=== PATIENT | male | born 1985 | race Caucasian/White ===

== ENCOUNTER 2017-12-15 21:47 | Emergency (ER) | payer BC ==
[2017-12-15] MEDS ORDERED: Acetaminophen/HYDROcodone 325-7.5 MG Tab PO ONE (22:06)
[2017-12-15] MEDS ORDERED: Ketorolac 60 MG/2 ML SDV IM ONE (22:06)
--- NOTE | 2017-12-15 22:10 | EDM.PDOC ---
ED HPI GENERAL MEDICAL PROBLEM - General Chief Complaint: Lower Extremity Injury/Pain Stated Complaint: PAIN LT FOOT Time Seen by Provider: 12/15/17 21:55 - History of Present Illness INITIAL COMMENTS - FREE TEXT/NARRATIVE: HISTORY AND PHYSICAL: History of present illness: The patient is a healthy 32-year-old male who presents after he felt a pop in his left ankle while he was walking off the basketball court. The patient says he was playing and had no issues during the game and they were between place and he was walking up the court when he suddenly felt a pop in his left ankle area and he went to the ground. He did not pass out or black out and initially did not have significant pain but he was not able to put weight on it or walk properly. He has no proximal knee or hip pain and he doesn't have any headache neck pain or back pain and as a result of all in. He has no distal foot or toe pain. He has no numbness or tingling in the foot. Patient did not take anything for pain prior to coming here. He has no other systemic complaints and is otherwise been doing well prior to these events. Review of systems: As per history of present illness and below otherwise all systems reviewed and negative. Past medical history: As per history of present illness and as reviewed below otherwise noncontributory. Surgical history: As per history of present illness and as reviewed below otherwise noncontributory. Social history: No reported history of drug or alcohol abuse. Family history: As per history of present illness and as reviewed below otherwise noncontributory. Physical exam: Gen.: Well-developed well-nourished man who is nontoxic and vital signs have been reviewed by me. HEENT: Atraumatic, normocephalic, negative for conjunctival pallor or scleral icterus, mucous membranes moist, throat clear, neck supple, nontender, trachea midline. Lungs: Clear to auscultation, breath sounds equal bilaterally, chest nontender. Heart: S1S2, regular rate and rhythm no overt murmurs Abdomen: Soft, nondistended, nontender. NABS Pelvis: Stable nontender. No lateral hip tenderness on the left Genitourinary: Deferred. Rectal: Deferred. Extremities: Atraumatic without any palpable bony deformities throughout all extremities and full range of motion. There is no gross calf swelling on the left and on palpation the Achilles tendon is not present but there is no gross tenderness. There is a slight amount of dependent ecchymosis at the posterior heel area but there is no bony deformity or tenderness of the heel or the distal foot and toes. Feet tib-fib knee and femur are intact and nontender. The legs are, negative for cords or calf pain. Neurovascular unremarkable. When I have the patient relax and I squeeze calf there is no movement of the foot. Patient is able to slightly dorsi and plantar flex at the foot but without much strength. Pulses are strong and there is no specific calcaneal or talus tenderness Neuro: Awake, alert, oriented. Cranial nerves II through XII unremarkable. Cerebellum unremarkable. Motor and sensory unremarkable throughout. Exam nonfocal. Diagnostics: X-ray left ankle Therapeutics: [place] Toradol ortho boot and crutches 2211: Case was discussed with Dr. Be Johnson the orthopedic surgeon at [facility]; he says that the patient does not need to come there emergently nor does he need to be seen emergently and that the repair of the tendon is usually done in a delayed fashion once swelling has improved. He recommends immobilization and crutches and follow-up next week in our clinic when our hearing aid specialist as available. I will discussed this conversation with the patient and family at bedside. Impression: Left Achilles pain/probable Left Achilles tendon rupture, rule out partial versus complete Definitive disposition and diagnosis as appropriate pending reevaluation and review of above. posterior left ankle Pain Score (Numeric/FACES): 8 - Related Data Allergies Allergy/AdvReac Type Severity Reaction Status Date / Time No Known Allergies Allergy Verified 12/15/17 22:01 Home Meds: Home Meds . [No Known Home Meds] 12/15/17 [History] Review of Systems - Review of Systems Review Of Systems: ROS reveals no pertinent complaints other than HPI. ED EXAM, GENERAL - Physical Exam Exam: See Below (See dictation) Course - Vital Signs Last Recorded V/S: Last Vital Signs Temp 36.8 C 12/15/17 21:55 Pulse 98 12/15/17 21:55 Resp 17 12/15/17 21:55 BP 110/69 12/15/17 21:55 Pulse Ox 94 L 12/15/17 21:55 - Orders/Labs/Meds Orders: Active Orders 24 hr Category Date Time Status Ankle Min 3V Lt [CR] Stat Exams 12/15/17 22:06 Taken DME for Discharge [COMM] Stat Oth 12/15/17 22:31 Ordered Meds: Medications Discontinued Medications Generic Name Dose Route Start Last Admin Trade Name Annette PRN Reason Stop Dose Admin Hydrocodone Bitart/Acetaminophen 1 tab 12/15/17 22:06 12/15/17 22:12 [place] 325-7.5 Mg PO 12/15/17 22:07 1 tab ONETIME ONE Administration Ketorolac Tromethamine 60 mg 12/15/17 22:06 12/15/17 22:12 Toradol IM 12/15/17 22:07 60 mg ONETIME ONE Administration Departure - Departure Time of Disposition: 22:39 Disposition: Home, Self-Care 01 Condition: Good Clinical Impression: Achilles tendon injury Qualifiers: Encounter type: initial encounter Laterality: left Qualified Code(s): S86.002A - Unspecified injury of left Achilles tendon, initial encounter - Discharge Information Referrals: PCP,None [Primary Care Provider] - Forms: ED Department Discharge Additional Instructions: The following information is given to patients seen in the emergency department who are being discharged to home. This information is to outline your options for follow-up care. We provide all patients seen in our emergency department with a follow-up referral. The need for follow-up, as well as the timing and circumstances, are variable depending upon the specifics of your emergency department visit. If you don't have a primary care physician on staff, we will provide you with a referral. We always advise you to contact your personal physician following an emergency department visit to inform them of the circumstance of the visit and for follow-up with them and/or the need for any referrals to a consulting specialist. The emergency department will also refer you to a specialist when appropriate. This referral assures that you have the opportunity for followup care with a specialist. All of these measure are taken in an effort to provide you with optimal care, which includes your followup. Under all circumstances we always encourage you to contact your private physician who remains a resource for coordinating your care. When calling for followup care, please make the office aware that this follow-up is from your recent emergency room visit. If for any reason you are refused follow-up, please contact the [facility] emergency department at and ask to speak to the emergency department charge nurse. GARIMA [facility]--Orthopedic clinic Professional Building [address] [place] [address] [phone] Please wear ortho blood at all times and loosen and remove only at sleep times. Use crutches and do not weight-bear until you're followed up in the clinic. Ice and elevate the area as much as possible and use pain medications as prescribed along with [id number] ibuprofen/Motrin. Please call our orthopedics clinic tomorrow for an expedited follow-up with our specialist on Tuesday or Tuesday. Return to ER as needed and as discussed. - My Orders Last 24 Hours: My Active Orders 12/15/17 22:06 Ankle Min 3V Lt [CR] Stat 12/15/17 22:31 DME for Discharge [COMM] Stat - Assessment/Plan Last 24 Hours: My Active Orders 12/15/17 22:06 Ankle Min 3V Lt [CR] Stat 12/15/17 22:31 DME for Discharge [COMM] Stat
--- NOTE | 2017-12-16 15:44 | CR ---
EXAM DATE: 12/15/17 PATIENT'S AGE: 32 Patient: CIERA CONROY Facility: [place], [place] Site . Site : 1985 Study: XRay Extremity Left ankle [id number]/[id number] 10:26:41 PM Ordering Physician: Rick Temple Final Report: INDICATION: posterior ankle pain TECHNIQUE: Three views of the left ankle COMPARISON: None FINDINGS: Bones: No fractures or bone lesions. Joint spaces: Unremarkable. Soft tissues: Thickening of the distal Achilles tendon. IMPRESSION: 1. No acute bony abnormality. 2. Thickening of the distal Achilles tendon. Please correlate for tendinopathy. Dictated by John Shoemaker MD @ 12/15/2017 10:32:08 PM Dictated by: John Shoemaker MD @ 12/15/2017 22:32:26 (Electronic Signature) Report Signed by Proxy. [email or web address]
== END 2017-12-15 22:55 | disposition home or self-care (01) ==
LOC: MW.ED 21:47
DX: S86.002A Unspecified injury of left Achilles tendon, initial encounter (principal); X50.9XXA Other and unspecified overexertion or strenuous movements or postures, initial encounter; Y93.67 Activity, basketball; Y92.310 Basketball court as the place of occurrence of the external cause
CPT/HCPCS: 73610; 96372; 99283; A9270; J1885; 99284

== ENCOUNTER 2017-12-21 14:28 | Day surgery (SDC) | payer BC ==
[~2017-12-21 14:28] MED LIST: Acetaminophen/HYDROcodone 325-5 MG Tab PO PRN; Albuterol/Ipratropium 3.0-0.5 MG/3 ML Neb Soln NEB ONE; Ketorolac 10 MG Tab PO PRN; Lactated Ringers 1,000 ML IV SCH; ceFAZolin 1 GM in Premix Bag 1 BAG IV SCH
--- NOTE | 2017-12-21 14:52 | PCM.PREANE ---
Preanesthetic Assessment - Anesthesia/Transfusion/Family Hx Anesthesia History: Prior Anesthesia Without Reaction Transfusion History: No Prior Transfusion(s) - Review of Systems General: No Symptoms Pulmonary: No Symptoms Cardiovascular: No Symptoms Gastrointestinal: No Symptoms Neurological: No Symptoms Other: Reports: None - Physical Assessment Height: 5 ft 8 in Weight: 72.575 kg ASA Class: 2 Mental Status: Alert & Oriented x3 Airway Class: Mallampati = 2 Dentition: Reports: Normal Dentition Thyro-Mental Finger Breadths: 3 Mouth Opening Finger Breadths: 3 ROM/Head Extension: Full Lungs: Clear to Auscultation, Normal Respiratory Effort Cardiovascular: Regular Rate, Regular Rhythm - Allergies Allergies/Adverse Reactions: Allergies Allergy/AdvReac Type Severity Reaction Status Date / Time No Known Allergies Allergy Verified 12/15/17 22:01 - Acknowledgements Anesthesia Type Planned: General Anesthesia (ett) Pt an Appropriate Candidate for the Planned Anesthesia: Yes Alternatives and Risks of Anesthesia Discussed w Pt/Guardian: Yes Pt/Guardian Understands and Agrees with Anesthesia Plan: Yes PreAnesthesia Questionnaire - Past Health History Medical/Surgical History: Denies Medical/Surgical History HEENT History: Reports: None Cardiovascular History: Reports: None Respiratory History: Reports: None Gastrointestinal History: Reports: None Genitourinary History: Reports: None Musculoskeletal History: Reports: Fracture Other Musculoskeletal History: hx fx ankle Neurological History: Reports: None Psychiatric History: Reports: None Endocrine/Metabolic History: Reports: None Hematologic History: Reports: None Immunologic History: Reports: None Oncologic (Cancer) History: Reports: None Dermatologic History: Reports: None - Past Surgical History Head Surgeries/Procedures: Reports: None HEENT Surgical History: Reports: Oral Surgery Other HEENT Surgeries/Procedures: wisdom teeth extraction - SUBSTANCE USE Smoking Status *Q: Never Smoker Second Hand Smoke Exposure: No Recreational Drug Use History: No - HOME MEDS Home Medications: Home Meds Hydrocodone/Acetaminophen [Hydrocodon-Acetaminophen 5-325] 1 - 2 tab PO ASDIRECTED PRN 12/19/17 [History] - CURRENT (IN HOUSE) MEDS Current Meds: Current Medications Hydrocodone Bitart/Acetaminophen ([place] 325-5 Mg) 1 - 2 tab PO Q4H PRN PRN Reason: Pain Cefazolin Sodium/Dextrose 1 gm (/ Premix) 50 mls @ 100 mls/hr IV ONCALL GISELA Lactated Ringer's (Ringers, Lactated) 1,000 mls @ 100 mls/hr IV ASDIRECTED [facility] Ketorolac Tromethamine (Toradol) 10 mg PO Q6H PRN PRN Reason: Pain Stop: 12/26/17 08:01
[2017-12-21] MEDS ORDERED: Midazolam 1 MG/ML 2 ML SDV ONE (14:59)
[2017-12-21] MEDS ORDERED: Propofol 200 MG/20 ML SDV ONE (14:59)
[2017-12-21] MEDS ORDERED: fentaNYL 100 MCG/2 ML SDV ONE (14:59)
[2017-12-21] MEDS ORDERED: Lidocaine 2% 5 ML SDV ONE (14:59)
[2017-12-21] MEDS ORDERED: cefOXitin 1 GM Vial ONE (15:00)
[2017-12-21] MEDS ORDERED: fentaNYL 250 MCG/5 ML SDV ONE (15:00)
[2017-12-21] MEDS ORDERED: cefOXitin 0 ML ONE (15:01)
--- NOTE | 2017-12-21 16:10 | PCM.OPNOTE ---
- General Post-Op/Procedure Note Date of Surgery/Procedure: 12/21/17 Operative Procedure(s): L Achilles' tendon repair Post-Op Diagnosis: L Achilles' tendon rupture Anesthesia Technique: General ET Tube Primary Surgeon: Stephanie Arita Heater Installer: Ivan Fletcher in mLs: 10 Condition: Good Free Text/Narrative:: tt-41 min #[id number]
[2017-12-21] MEDS ORDERED: Bupivacaine 0.5% 10 ML SDV ONE (17:15)
[2017-12-21] MEDS ORDERED: Rocuronium 10 MG/ML 10 ML Syringe ONE (17:28)
[2017-12-21] MEDS ORDERED: ePHEDrine 50 MG/ML SDV ONE (17:53)
[2017-12-21] MEDS ORDERED: Sodium Chloride 0.9% 20 ML ONE (17:53)
[2017-12-21] MEDS ORDERED: Glycopyrrolate 0.2 MG/ML SDV ONE (18:16)
[2017-12-21] MEDS ORDERED: Neostigmine Methylsulfate 1 MG/ML 5 ML Syringe ONE (18:16)
[2017-12-21] MEDS: fentaNYL 100 MCG/2 ML SDV IVPUSH PRN ×2 (19:27→19:34)
--- NOTE | 2017-12-21 20:36 | PCM.POSTAN ---
POST ANESTHESIA ASSESSMENT - MENTAL STATUS Mental Status: Alert, Oriented - RESPIRATORY Respiratory Status: Respiratory Rate WNL, Airway Patent, O2 Saturation Stable - CARDIOVASCULAR CV Status: Pulse Rate WNL, Blood Pressure Stable - GASTROINTESTINAL GI Status: No Symptoms - POST OP HYDRATION Hydration Status: Adequate & Stable
--- NOTE | 2017-12-21 20:37 | PCM48HPAN ---
Post Anesthesia Note - EVALUATION WITHIN 48HRS OF ANESTHETIC Vital Signs in Normal Range: Yes Patient Participated in Evaluation: Yes Respiratory Function Stable: Yes Airway Patent: Yes Cardiovascular Function Stable: Yes Hydration Status Stable: Yes Pain Control Satisfactory: Yes Nausea and Vomiting Control Satisfactory: Yes Pulse Rate: 54 SaO2: 95 (RA) Resp Rate: 10
--- NOTE | 2017-12-22 00:18 | OR ---
SURGEON: Stephanie Arita MD DATE OF PROCEDURE: 12/21/2017 PREOPERATIVE DIAGNOSIS: Left Achilles tendon rupture. POSTOPERATIVE DIAGNOSIS: Left Achilles tendon rupture. PROCEDURE: Left Achilles tendon repair, open. FIREARMS MODEL MAKER: Ivan Manjarrez MD, PGY 3 and Kya Shrestha PA-C. ANESTHESIA: General. ESTIMATED BLOOD LOSS: 10 mL. TOURNIQUET TIME: 41 minutes. COMPLICATIONS: None. DVT PROPHYLAXIS: PAS boot to the nonoperative leg. IMPLANTS USED: None. BRIEF HISTORY: Carmine is a 32-year-old male who injured his left ankle while playing basketball. An MRI did confirm a complete rupture of the left Achilles tendon. At that time, I discussed surgical treatment options with the patient. The risks and goals were discussed, and he agreed to proceed. DESCRIPTION OF PROCEDURE: The patient was properly identified and brought to the operating room. General anesthesia was administered on the operating room cart. After adequate anesthesia was obtained, the patient was placed in a prone position. Chest rolls were used. His abdominal contents were allowed to hang free. His shoulders were supported. A well-padded tourniquet was applied to the left lower extremity. The left lower extremity was then prepped in standard fashion using ChloraPrep solution. It was then sterilely draped. A time-out was performed to ensure correct site and procedure. Preoperative antibiotics were given. The surgical site had been marked preoperatively. An Esmarch was used to exsanguinate the left lower extremity, and the tourniquet was inflated to 250 mmHg. An incision was made over the posterior aspect of the low leg in a slightly medial position. This was centered over the site of the palpable defect. The thick skin bridges were made. The paratenon was then encountered. This was incised with a deep knife and preserved. The Achilles tendon rupture was visualized. It was quite hemorrhagic. The wound was copiously irrigated with saline solution. The frayed ends were removed. The ends were able to be easily reapproximated. Allis clamps were placed onto both the distal and proximal ends, and #2 FiberWire was passed in a modified Krackow-type stitch. Once the distal and proximal ends were sutured with 4 ties from each section, they were reapproximated and tied without difficulty. I did check the tension from the contralateral leg. He was also taken through a range of motion. I was able to get him to approximately 5 degrees of ankle dorsiflexion with minimal tension on the repair. The repair was then oversewn with a continuous running 0 Vicryl, which provided further support to the repair. The wound was again copiously irrigated with saline solution. The paratenon was sewn over the tendon using 2- 0 Monocryl. We were able to get good coverage of the tendon. The tourniquet was then deflated. The subcutaneous tissues were closed with 2-0 Monocryl, and the skin was closed with britt. 0.5% Marcaine was injected along the wound edges. Xeroform gauze was placed over the wound, and a bulky dressing was applied. He was placed in a well-padded posterior splint with medial and lateral stabilizing slab, keeping the foot in a slightly plantar flexed position. He was awakened from his anesthetic and transferred back to the operating room cart. He was brought to recovery room in stable condition. All needle and sponge counts were correct. ANABELLA / EMILE /[id number]
== END 2017-12-21 21:05 | disposition home or self-care (01) ==
LOC: MW.SDS 14:28
PROVIDERS: ATTEND Orthopaedic Surgery
DX: S86.002A Unspecified injury of left Achilles tendon, initial encounter (principal); Z79.899 Other long term (current) drug therapy; Y93.67 Activity, basketball
CPT/HCPCS: 27650; A9270; J0690; J2250; J3010; J7120; 01472; J0694; J2704

== ENCOUNTER 2018-07-06 05:51 | Emergency (ER) | payer BC ==
--- NOTE | 2018-07-06 05:55 | EDM.PDOC ---
ED HPI GENERAL MEDICAL PROBLEM - General Stated Complaint: CUT ON LEFT FINGER Time Seen by Provider: 07/06/18 05:55 Source of Information: Reports: Patient History Limitations: Reports: No Limitations - History of Present Illness INITIAL COMMENTS - FREE TEXT/NARRATIVE: HISTORY AND PHYSICAL: History of present illness: 33-year-old male presenting emergency department with chief complaint of left hand trauma and laceration. Patient states that he was lifting weights this morning and while changing the cable weights the pin came out and the weights fell landing on the tips of his left third and fourth digit. He had immediate pain and there was significant bleeding. Denies any other trauma or loss of consciousness. Patient states that he is up-to-date on tetanus. On exam there is bruising to the left fourth nail. There is a 4 cm x 0.1 curvilinear laceration starting just proximal to the left middle nail and curving anteriorly to the palmar surface of the left distal middle finger. Left hand x-ray revealed a mildly displaced possibly mildly comminuted spiral fracture involving the distal phalanx of the left middle finger with moderate overlying soft tissue swelling and soft tissue irregularity consistent with overlying moderately prominent soft tissue laceration which partially involves the nail bed. There is subtle linear lucency through the distal tuft of the left index finger on only the frontal image and radiology is unable to exclude a subtle fracture. Did call Dr. Chamberlain, Plastic/hand surgeon, who instructed us to thoroughly clean wound and have the patient see her early this morning in her clinic. They will call him for details. This was communicated to the patient. Review of systems: As per history of present illness and below otherwise all systems reviewed and negative. Past medical history: As per history of present illness and as reviewed below otherwise noncontributory. Surgical history: As per history of present illness and as reviewed below otherwise noncontributory. Social history: No reported history of drug or alcohol abuse. Family history: As per history of present illness and as reviewed below otherwise noncontributory. Physical exam: HEENT: Atraumatic, normocephalic, pupils reactive, negative for conjunctival pallor or scleral icterus, mucous membranes moist, throat clear, neck supple, nontender, trachea midline. Lungs: Clear to auscultation, breath sounds equal bilaterally, chest nontender. Heart: S1S2, regular, negative for clicks, rubs, or JVD. Abdomen: Soft, nondistended, nontender. Negative for masses or hepatosplenomegaly. Negative for costovertebral tenderness. Pelvis: Stable nontender. Genitourinary: Deferred. Rectal: Deferred. Extremities: Atraumatic, negative for cords or calf pain. Neurovascular unremarkable. Neuro: Awake, alert, oriented. Cranial nerves II through XII unremarkable. Cerebellum unremarkable. Motor and sensory unremarkable throughout. Exam nonfocal. Diagnostics: Three-view left hand x-ray Therapeutics: 1% lidocaine digital block 5 mL 0.25% Bupivicaine digital block 5 ml Impression: Open fracture Spiral comminuted open fracture of the distal left middle phalanx Possible subtle fracture of distal left index finger Plan: Please see above H&P. Patient will follow up with Dr. Chamberlain as per above. Definitive disposition and diagnosis as appropriate pending reevaluation and review of above. - Related Data Allergies Allergy/AdvReac Type Severity Reaction Status Date / Time No Known Allergies Allergy Verified 07/06/18 05:58 Home Meds: Home Meds . [No Known Home Meds] 07/06/18 [History] Past Medical History - Past Health History Medical/Surgical History: Denies Medical/Surgical History HEENT History: Reports: None Cardiovascular History: Reports: None Respiratory History: Reports: None Gastrointestinal History: Reports: None Genitourinary History: Reports: None Musculoskeletal History: Reports: Fracture Other Musculoskeletal History: hx fx ankle Neurological History: Reports: None Psychiatric History: Reports: None Endocrine/Metabolic History: Reports: None Hematologic History: Reports: None Immunologic History: Reports: None Oncologic (Cancer) History: Reports: None Dermatologic History: Reports: None - Past Surgical History Head Surgeries/Procedures: Reports: None HEENT Surgical History: Reports: Oral Surgery Other HEENT Surgeries/Procedures: wisdom teeth extraction Social & Family History - Family History Family Medical History: Noncontributory - Caffeine Use Caffeine Use: Reports: Coffee ED ROS GENERAL - Review of Systems Review Of Systems: ROS reveals no pertinent complaints other than HPI. ED EXAM, GENERAL - Physical Exam Exam: See Below Course - Vital Signs Last Recorded V/S: Last Vital Signs Temp 97.4 F 07/06/18 05:59 Pulse 80 07/06/18 05:59 Resp 18 07/06/18 05:59 BP 118/64 07/06/18 05:59 Pulse Ox 98 07/06/18 05:59 - Orders/Labs/Meds Orders: Active Orders 24 hr Category Date Time Status Hand Comp Min 3V Lt [CR] Stat Exams 07/06/18 05:58 Ordered Meds: Medications Discontinued Medications Generic Name Dose Route Start Last Admin Trade Name Annette PRN Reason Stop Dose Admin Bupivacaine HCl 10 ml 07/06/18 06:38 Sensorcaine-Mpf 0.25% INJECT 07/06/18 06:39 ONETIME ONE Lidocaine HCl 10 ml 07/06/18 06:01 07/06/18 06:11 Xylocaine-Mpf 1% INJECT 07/06/18 06:02 10 ml ONETIME ONE Administration Departure - Departure Time of Disposition: 06:45 Disposition: Home, Self-Care 01 Condition: Good Clinical Impression: Open fracture of phalanx of finger of left hand Qualifiers: Encounter type: initial encounter Finger: middle finger Phalanx: distal Fracture alignment: displaced Qualified Code(s): S62.633B - Displaced fracture of distal phalanx of left middle finger, initial encounter for open fracture - Discharge Information Referrals: PCP,None [Primary Care Provider] - Additional Instructions: My general discharge The following information is given to patients seen in the emergency department who are being discharged to home. This information is to outline your options for follow-up care. We provide all patients seen in our emergency department with a follow-up referral. The need for follow-up, as well as the timing and circumstances, are variable depending upon the specifics of your emergency department visit. If you don't have a primary care physician on staff, we will provide you with a referral. We always advise you to contact your personal physician following an emergency department visit to inform them of the circumstance of the visit and for follow-up with them and/or the need for any referrals to a consulting specialist. The emergency department will also refer you to a specialist when appropriate. This referral assures that you have the opportunity for follow-up care with a specialist. All of these measure are taken in an effort to provide you with optimal care, which includes your follow-up. Under all circumstances we always encourage you to contact your private physician who remains a resource for coordinating your care. When calling for follow-up care, please make the office aware that this follow-up is from your recent emergency room visit. If for any reason you are refused follow-up, please contact the [facility] Emergency Department at and asked to speak to the emergency department charge nurse. [facility] - Plastic Surgery Professional Building [address] [place] [address], [address] [place] [address] Please follow-up with Dr. Chamberlain, plastic/hand surgeon, as we discussed. Her office will call you early this morning so that you can be seen this a.m. Return emergency department if any new or worsening symptoms. - My Orders Last 24 Hours: My Active Orders 07/06/18 05:58 Hand Comp Min 3V Lt [CR] Stat - Assessment/Plan Last 24 Hours: My Active Orders 07/06/18 05:58 Hand Comp Min 3V Lt [CR] Stat
[2018-07-06] MEDS ORDERED: Bupivacaine 0.25% 10 ML SDV INJECT ONE (06:38)
--- NOTE | 2018-07-06 11:06 | CR ---
EXAM DATE: 07/06/18 PATIENT'S AGE: 33 Patient: CIERA CONROY Facility: [place], [place] Site . Site : 1985 Study: XRay Extremity Left [id number]/30/2018 6:18:42 AM Ordering Physician: Dylan Schwab Final Report: INDICATION: Trauma. TECHNIQUE: Three views left hand. FINDINGS: Mildly displaced possibly mildly comminuted spiral fracture involving the distal phalanx of the left middle finger with moderate overlying soft tissue swelling and soft tissue irregularity consistent with overlying moderately prominent soft tissue laceration which partially involves the nailbed. Subtle linear lucency through the distal tuft of the left index finger on only the frontal image and I cannot exclude a subtle fracture in this region. Clinical correlation for pain in this location is recommended. No other fracture or dislocation in left hand. Remainder negative. Dictated by Jaiden Hernandez MD @ Jul 06 2018 6:25AM (Electronic Signature) Report Signed by Proxy. RAFA
== END 2018-07-06 07:00 | disposition home or self-care (01) ==
LOC: MW.ED 05:51
DX: S62.633B Displaced fracture of distal phalanx of left middle finger, initial encounter for open fracture (principal); X50.0XXA Overexertion from strenuous movement or load, initial encounter
CPT/HCPCS: 64450; 73130; 99282; J3490; 99283

== ENCOUNTER 2018-12-03 20:11 | Emergency (ER) | payer BC ==
[2018-12-03] MEDS ORDERED: Diphtheria,Pertussis(Acell),Tetanus Vaccine 0.5 ML Syringe IM ONE (20:23)
[2018-12-03] MEDS ORDERED: Bacitracin Oint 1 GM U/D Packet TOP ONE (20:29)
[2018-12-03] MEDS ORDERED: Bacitracin Oint 1 GM U/D Packet ONE (20:30)
--- NOTE | 2018-12-03 20:35 | EDM.PDOC ---
ED HPI GENERAL MEDICAL PROBLEM - General Chief Complaint: Laceration Stated Complaint: PT HURT LIP Time Seen by Provider: 12/03/18 20:35 - History of Present Illness INITIAL COMMENTS - FREE TEXT/NARRATIVE: HISTORY AND PHYSICAL: History of present illness: Patient 33-year-old white male presents with concern of right facial laceration occurred when he was hit with a hockey stick role-played tonight he denies loss consciousness denies other trauma or concern he denies up-to-date tetanus Review of systems: As per history of present illness and below otherwise all systems reviewed and negative. Past medical history: As per history of present illness and as reviewed below otherwise noncontributory. Surgical history: As per history of present illness and as reviewed below otherwise noncontributory. Social history: No reported history of drug or alcohol abuse. Family history: As per history of present illness and as reviewed below otherwise noncontributory. Physical exam: HEENT: Patient has approximately 2 cm moderate depth laceration to his right face is no bony step-off no depression neurovascular exam is unremarkable, normocephalic, pupils reactive, negative for conjunctival pallor or scleral icterus, mucous membranes moist, throat clear, neck supple, nontender, trachea midline. Lungs: Clear to auscultation, breath sounds equal bilaterally, chest nontender. Heart: S1S2, regular, negative for clicks, rubs, or JVD. Abdomen: Soft, nondistended, nontender. Negative for masses or hepatosplenomegaly. Negative for costovertebral tenderness. Pelvis: Stable nontender. Genitourinary: Deferred. Rectal: Deferred. Extremities: Atraumatic, negative for cords or calf pain. Neurovascular unremarkable. Neuro: Awake, alert, oriented. Cranial nerves II through XII unremarkable. Cerebellum unremarkable. Motor and sensory unremarkable throughout. Exam nonfocal. Diagnostics: None Therapeutics: Patient was anesthetized 1% lidocaine without epinephrine irrigated copious amounts 0.9 normal saline prepped and draped in a sterile manner and closed with 5-0 absorbable suture bacitracin was applied tetanus was updated Impression: #1 minor head injury with right facial laceration Definitive disposition and diagnosis as appropriate pending reevaluation and review of above. Right Face/Facial Pain Score (Numeric/FACES): 5 - Related Data Allergies Allergy/AdvReac Type Severity Reaction Status Date / Time No Known Allergies Allergy Verified 12/03/18 20:27 Home Meds: Home Meds . [No Known Home Meds] 07/06/18 [History] Past Medical History - Past Health History Medical/Surgical History: Denies Medical/Surgical History HEENT History: Reports: None Cardiovascular History: Reports: None Respiratory History: Reports: None Gastrointestinal History: Reports: None Genitourinary History: Reports: None Musculoskeletal History: Reports: Fracture Other Musculoskeletal History: hx fx ankle Neurological History: Reports: None Psychiatric History: Reports: None Endocrine/Metabolic History: Reports: None Hematologic History: Reports: None Immunologic History: Reports: None Oncologic (Cancer) History: Reports: None Dermatologic History: Reports: None - Past Surgical History Head Surgeries/Procedures: Reports: None HEENT Surgical History: Reports: Oral Surgery Other HEENT Surgeries/Procedures: wisdom teeth extraction Social & Family History - Family History Family Medical History: Noncontributory - Caffeine Use Caffeine Use: Reports: Coffee ED ROS GENERAL - Review of Systems Review Of Systems: ROS reveals no pertinent complaints other than HPI. ED EXAM, SKIN/RASH Exam: See Below (See dictation) Course - Vital Signs Last Recorded V/S: Last Vital Signs Temp 36.4 C 12/03/18 20:25 Pulse 90 12/03/18 20:25 Resp 18 12/03/18 20:25 BP 127/75 12/03/18 20:25 Pulse Ox 98 12/03/18 20:25 - Orders/Labs/Meds Orders: Active Orders 24 hr Category Date Time Status Vaccines to be Administered [RC] PER UNIT ROUTINE Care 12/03/18 20:23 Active Meds: Medications Discontinued Medications Generic Name Dose Route Start Last Admin Trade Name Annette PRN Reason Stop Dose Admin Bacitracin 1 dose 12/03/18 20:29 Bacitracin Oint 1 Gm TOP 12/03/18 20:30 ONETIME ONE Diphtheria/Tetanus/Acell Pertussis 0.5 ml 12/03/18 20:23 Adacel IM 12/03/18 20:24 .ONCE ONE Lidocaine HCl Confirm 12/03/18 20:21 Xylocaine-Mpf 1% Administered 12/03/18 20:22 Dose 5 mls @ as directed .ROUTE .STK-MED ONE Lidocaine HCl 5 ml 12/03/18 20:23 Xylocaine-Mpf 1% INJECT 12/03/18 20:24 ONETIME ONE Departure - Departure Time of Disposition: 20:34 Disposition: Home, Self-Care 01 Condition: Good Clinical Impression: Minor head injury, Facial laceration - Discharge Information Referrals: PCP,None [Primary Care Provider] - Additional Instructions: The following information is given to patients seen in the emergency department who are being discharged to home. This information is to outline your options for follow-up care. We provide all patients seen in our emergency department with a follow-up referral. The need for follow-up, as well as the timing and circumstances, are variable depending upon the specifics of your emergency department visit. If you don't have a primary care physician on staff, we will provide you with a referral. We always advise you to contact your personal physician following an emergency department visit to inform them of the circumstance of the visit and for follow-up with them and/or the need for any referrals to a consulting specialist. The emergency department will also refer you to a specialist when appropriate. This referral assures that you have the opportunity for followup care with a specialist. All of these measure are taken in an effort to provide you with optimal care, which includes your followup. Under all circumstances we always encourage you to contact your private physician who remains a resource for coordinating your care. When calling for followup care, please make the office aware that this follow-up is from your recent emergency room visit. If for any reason you are refused follow-up, please contact the [facility] emergency department at and asked to speak to the emergency department charge nurse. Follow-up primary medical doctor for wound check in 48 hours wound care as directed return as needed to discuss - My Orders Last 24 Hours: My Active Orders 12/03/18 20:23 Vaccines to be Administered [RC] PER UNIT ROUTINE - Assessment/Plan Last 24 Hours: My Active Orders 12/03/18 20:23 Vaccines to be Administered [RC] PER UNIT ROUTINE
== END 2018-12-03 20:51 | disposition home or self-care (01) ==
LOC: MW.ED 20:11
DX: S01.81XA Laceration without foreign body of other part of head, initial encounter (principal); S09.90XA Unspecified injury of head, initial encounter; Z23 Encounter for immunization; W21.210A Struck by ice hockey stick, initial encounter
CPT/HCPCS: 12011; 90471; 90715; 99282; 99282-25